=== PATIENT | male | born 1995 | race African-American/Black ===

== ENCOUNTER 2021-09-11 14:06 | Emergency (ER) | payer OTHER, SELFPAY ==
[~2021-09-11 14:06] MED LIST: Iopamidol-370 76% 500 ML 1 ML ONE
[2021-09-11 14:27] LABS: #Basophils 0.1 thou/uL (0.0-0.2); #Eosinphils 0.1 thou/uL (0.0-0.7); #Lymphocytes 1.6 thou/uL (1.20-3.40); #Monocytes 0.5 thou/uL (0.11-0.59); #Neutrophils 4.6 thou/uL (1.40-6.50); %Basophils 0.9 % (0.0-1.0); %Eosinophils 1.1 % (0.0-10.0); %Lymphocytes 23.5 % (21.0-51.0); %Monocytes 6.9 % (0.0-10.0); %Neutrophils 67.7 % (42.0-75.0); Mean Corpuscular HGB CONC 34.3 g/dL (32.0-36.0); Mean Corpuscular Hemoglobin 31.5 pg (27.0-31.0); Mean Corpuscular Volume 91.9 fL (78.0-98.0); Mean Platelet Volume 10.5 fL (7.4-10.4); Platelet Count 133 thou/uL (130-400); Red Blood Cell (RBC) Count 5.71 mill/uL (4.70-6.10); White Blood Cell (WBC) Count 6.8 thou/uL (4.8-10.8)
[2021-09-11] MEDS ORDERED: Ketorolac Tromethamine 30 MG/ML VIAL ONE (14:41)
[2021-09-11] MEDS ORDERED: Morphine 4 MG/ML VIAL ONE (14:41)
[2021-09-11 14:45] LABS: ALT (SGPT) 17 U/L (8-55); AST (SGOT) 16 U/L (5-34); Acetaminophen Less than 6.0 mcg/mL (10.0-30.0); Albumin 4.1 g/dL (3.5-5.0); Alcohol Less than 10 mg/dL (Less than 10); Alkaline Phosphatase 60 U/L (40-110); Anion Gap 10 mmol/L (10-20); BUN (Urea Nitrogen) 11 mg/dL (8.9-20.6); Bilirubin, Total 1.2 mg/dL (0.2-1.2); Calc. Creatinine Clearance 0 mL/min (70-130); Calcium 11.2 mg/dL (7.8-10.44); Carbon Dioxide 25 mmol/L (22-29); Chloride 106 mmol/L (98-107); Globulin 3.4 g/dL (2.4-3.5); Glucose 88 mg/dL (70-105); Protein, Total 7.5 g/dL (6.0-8.3); Salicylate Less than 8.0 mg/dL (15.0-30.0); Sodium 137 mmol/L (136-145)
[2021-09-11 15:23] LABS: Bacteria/HPF None Seen HPF (None Seen); Bilirubin Negative (Negative); Blood, Urine Negative (Negative); Clarity Clear (Clear); Glucose, Urine (Dipstick) Normal (Negative); Ketone, Urine Negative (Negative); Leukocyte Negative Leu/uL (Negative); Nitrite Negative (Negative); Protein, Urine (Dipstick) 30 mg/dL (Neg-Trace); RBC/HPF 0-3 HPF (0-3); Specific Gravity, Urine 1.049 (1.002-1.036); Squamous Epithelial 0-3 HPF (0-3); Urobilinogen Normal mg/dL (Less than 2); WBC/HPF 0-3 HPF (0-3); pH, Urine 7.5 (5.0-9.0)
[2021-09-11 15:30] LABS: Amphetamine Not Detected (NotDetected); Barbiturates Screen Not Detected (NotDetected); Benzodiazepine Screen Detected (NotDetected); Cocaine Metabolite Screen Not Detected (NotDetected); Methadone Not Detected (NotDetected); Methamphetamine Not Detected (NotDetected); Opiate Screen Detected (NotDetected); Oxycodone Screen Not Detected (NotDetected); Phencyclidine (PCP) Not Detected (NotDetected); THC/Cannabinoid Screen Detected (NotDetected); Tricyclic Screen Not Detected (NotDetected)
== END 2021-09-11 15:31 | disposition home or self-care (01) ==
LOC: ERS 14:06
DX: S06.0X0A Concussion without loss of consciousness, initial encounter (principal); S20.219A Contusion of unspecified front wall of thorax, initial encounter; V40.9XXA Unspecified car occupant injured in collision with pedestrian or animal in traffic accident, initial encounter
CPT/HCPCS: 36416; 70450; 71045; 71260; 72125; 74177; 80053; 80306; 80307; 81003; 81015; 83735; 85025; 93005; 96374; 96375; G0390; J1885; J2270; Q9967

== ENCOUNTER 2023-04-20 01:34 | Emergency (ER) | payer SELFPAY ==
[2023-04-20] MEDS ORDERED: Ondansetron ODT 8 MG TAB ONE (02:09)
[2023-04-20 03:52] LABS: SARS-CoV-2 NAA Rapid Test Not Detected (NotDetected)
[2023-04-21 10:09] LABS: Campy jejuni + coli by PCR Negative (Negative); STEC Shiga Toxin 1+2 Negative (Negative); Salmonella spp. by PCR POSITIVE (Negative); Shigella spp + EIEC by PCR Negative (Negative)
== END 2023-04-20 04:52 | disposition home or self-care (01) ==
LOC: ERS 01:34
DX: R19.7 Diarrhea, unspecified (principal); Z20.822 Contact with and (suspected) exposure to COVID-19
CPT/HCPCS: 87505; 96360; Q0162

== ENCOUNTER 2023-05-14 03:15 | Emergency (ER) | payer SELFPAY | END 2023-05-14 03:40 | LOC: ERS 03:15 | DX: R00.0 Tachycardia, unspecified (principal) | CPT/HCPCS: 99282 ==

== ENCOUNTER 2024-06-14 14:48 | Emergency (ER) | payer SELFPAY ==
[~2024-06-14 14:48] MED LIST changes: -Iopamidol-370 76% 500 ML 1 ML ONE; +Iopamidol-370 76% 500 ML MDV (1 ML CHARGE) ONE
[2024-06-14 15:43] LABS: Hematocrit 44.6 % (42.0-52.0); Hemoglobin 15.5 g/dL (14.0-18.0); Mean Corpuscular HGB CONC 34.8 g/dL (32.0-36.0); Mean Corpuscular Hemoglobin 29.5 pg (27.0-31.0); Mean Platelet Volume 12.3 fL (7.4-10.4); Platelet Count 169 10x3/uL (130-400); RBC Distribution Width 13.2 % (11.5-14.5); Red Blood Cell (RBC) Count 5.25 mill/uL (4.70-6.10)
[2024-06-14 15:57] LABS: ALT (SGPT) 20 U/L (8-55); AST (SGOT) 20 U/L (5-34); Albumin 4.4 g/dL (3.5-5.0); Alkaline Phosphatase 48 U/L (40-110); Anion Gap 10 mmol/L (10-20); BUN (Urea Nitrogen) 16 mg/dL (8.9-20.6); Bilirubin, Total 2.5 mg/dL (0.2-1.2); Calc. Creatinine Clearance 0 mL/min (70-130); Carbon Dioxide 27 mmol/L (22-29); Chloride 106 mmol/L (98-107); Estimated GFR 93; Globulin 3.3 g/dL (2.4-3.5); Glucose 91 mg/dL (70-105); Lipase 10 U/L (8-78); Potassium 3.5 mmol/L (3.5-5.1); Protein, Total 7.7 g/dL (6.0-8.3); Sodium 139 mmol/L (136-145)
[2024-06-14 16:12] LABS: Lymphocytes 2 % (21-51); Monocytes 5 % (0-10); Neutrophil 91 % (42-75); Platelet Adequacy Comment Platelets Normal; Reactive Lymphocytes 2 % (0-10); Stomatocytes SLIGHT = 2-5 cells HPF (0-1)
[2024-06-14] MEDS ORDERED: Haloperidol Lactate 5 MG/ML VIAL ONE (17:56)
[2024-06-14] MEDS ORDERED: Pantoprazole 40 MG VIAL ONE (17:56)
[2024-06-14] MEDS ORDERED: diphenhydrAMINE 50 MG/ML VIAL ONE (17:56)
[2024-06-14] MEDS ORDERED: Ondansetron PF 4 MG/2 ML Vial ONE (17:56)
[2024-06-14] MEDS ORDERED: Metoclopramide HCl 10 MG (2 mL) VIAL ONE (17:56)
== END 2024-06-14 19:24 | disposition home or self-care (01) ==
LOC: ERS 14:48
DX: R10.9 Unspecified abdominal pain (principal); R11.10 Vomiting, unspecified
CPT/HCPCS: 36415; 74177; 76705; 80053; 83690; 85025; 93005; 96361; 96374; 96375; J1200; J1630; J2405; J2470; J2765; Q9967

== ENCOUNTER 2025-03-06 03:10 | Emergency (ER) | payer SELFPAY ==
[2025-03-06] MEDS ORDERED: Proparacaine 0.5% Opth 15 ML BOT ONE (03:41)
[2025-03-06] MEDS ORDERED: Fluorescein Opthalmic Strip ONE (03:41)
== END 2025-03-06 04:34 | disposition home or self-care (01) ==
LOC: ERS 03:10
DX: H16.001 Unspecified corneal ulcer, right eye (principal); R03.0 Elevated blood-pressure reading, without diagnosis of hypertension
CPT/HCPCS: 99283